=== PATIENT | female | born 1995 | race Caucasian/White ===

== ENCOUNTER → 2018-04-11 15:41 | Outpatient (CLI) | payer MEDICAID, SELFPAY ==
[2018-04-11 17:54] LABS: Vitamin D,25 Hydroxy 20.2 ng/mL (29.95-100.01)
== END ==
PROVIDERS: Family Provider Pediatrics; PCP Pediatrics; Visit Provider Family Medicine
DX: J02.0 Streptococcal pharyngitis (principal); Z13.89 Encounter for screening for other disorder
CPT/HCPCS: 36415; 82306; 87070; 87077; 87186